=== PATIENT | male | born 1970 | race Caucasian/White ===

== ENCOUNTER → 2021-11-18 09:44 | Outpatient (CLI) | payer OTHER, SELFPAY ==
[2021-11-18 11:29] LABS: COVID19 -Nasal RAPID Negative (Negative)
== END ==
PROVIDERS: PCP Family Medicine; Visit Provider Surgery
DX: Z01.812 Encounter for preprocedural laboratory examination (principal); Z20.822 Contact with and (suspected) exposure to COVID-19
CPT/HCPCS: 87635; C9803

== ENCOUNTER 2021-11-19 11:10 | Day surgery (SDC) | payer OTHER, SELFPAY ==
--- NOTE | 2021-11-19 | PATH_ITS ---
[facility] Accession Number: [id number] . 01 Material submitted: . colon - DESCENDING COLON POLYP . 01 Clinical history: . SCREENING COLONOSCOPY ENCOUNTER FOR SCREENING FOR MALIGNANT NEOPLASM . 01 Diagnosis: Descending Colon, Polyp, Biopsy: Tubular adenoma. MRV 11/21/2021 0932 Local . 01 Electronically signed: . Denise Ramierz MD, Pathologist NPI- [id number] . 01 Gross description: . DESCENDING COLON POLYP: Received in formalin are 2 fragment(s) of cheng, soft tissue measuring 0.4 x 0.2 x 0.2 cm to 0.4 x 0.2 x 0.1 cm submitted entirely in 1 cassette(s) /CPE 11/20/202113 Local . 01 Pathologist provided ICD-10: D12.4 . 01 CPT . 316158 Performed at: 01 [facility] [address] [place] [address], [place], [place] [id number] MD Bautista Tellez MD Phone: [phone]
[2021-11-19 11:45] VITALS: BP 124/95; PULSE 98; RESP 16; TEMP 35.9; O2SAT 97; BMI 25.7
[2021-11-19] MEDS: LACTATED RINGERS 1,000 ML 200 ML IV (11:56)
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
[2021-11-19] MEDS: ONDANSETRON 4 MG/2 ML INJ IV (12:54)
[2021-11-19] MEDS: MIDAZOLAM 5 MG/5 ML VIAL 7 MG IV (12:59)
[2021-11-19] MEDS: fentaNYL 100 MCG/2 ML INJ 150 MCG IV (12:59)
--- NOTE | 2021-11-19 13:22 | PM.OP.COLON ---
Operative Date/Time/Diagnoses Date of procedure: 11/19/21 Time of procedure: 13:22 Pre-op diagnosis: Screening colonoscopy Post-op diagnosis: same Procedure & Clinicians Study performed: Colonoscopy Same procedure as scheduled: Yes Indications: Screening Surgeon: Dre Bennett Procedure Notes Procedure in detail: Medications: Conscious sedation using 7mg IV midazolam and 150mcg IV of fentanyl The history and physical was performed/updated and the patient is ASA class is 2. The procedure was discussed in detail with the patient. Potential risks complications including infection, bleeding, missed diagnosis, perforation, need for surgery, and were explained. Their questions were answered and informed consent was obtained. Patient was brought to the procedure room and placed standard monitoring equipment. The patient's vital signs were monitored continuously throughout the entire procedure. Prior to starting time-out was performed. The patient was placed in the left lateral recumbent position. Procedural sedation was administered. Examination began with a thorough inspection of the perianal area there was no evidence of fissures, fistulae, external hemorrhoids or cutaneous malignancy. The colonoscopy scope was then placed into the anal canal and was advanced to the cecum, which was identified by the ileocecal valve, the appendiceal orifice and the confluence of the taenia. The scope was then slowly withdrawn examining colon thoroughly in all directions, irrigating it of any residual stool. FINDINGS 1. Descending colon-3 mm polyp removed with biopsy forceps 2. Normal colonic end to end anastomosis The patient tolerated the procedure well. They will be discharged once criteria are met. The prep was of good/excellent quality. The withdrawl time was 12minutes. The sedation time was 24 minutes. Specimen(s): other (Descending colonic polyp) Complications: none Impression: Colonic polyp Post-procedure Recommendations: Will call with biopsy results Disposition: same day surgery
[2021-11-19 13:25] VITALS: BP 138/104; PULSE 92; RESP 10; TEMP 36.6; O2SAT 96
[2021-11-19 13:30] VITALS: BP 123/94; PULSE 95; RESP 13; O2SAT 96
[2021-11-19 13:35] VITALS: BP 129/99; PULSE 97; RESP 15; O2SAT 96
[2021-11-19 13:40] VITALS: BP 134/98; PULSE 97; RESP 10; TEMP 37.2; O2SAT 97
--- NOTE | 2021-11-19 13:49 | SUR.PHASEII ---
Report received. PO intake provided. Clothing and artificial lower limb provided.
[2021-11-19 14:05] VITALS: BP 119/90; PULSE 99; TEMP 36.4; O2SAT 100
== END 2021-11-19 14:17 | disposition home or self-care (01) ==
PROVIDERS: PCP Family Medicine; Referring Provider Surgery; Visit Provider Surgery
PROC: 0DJD8ZZ Inspection of Lower Intestinal Tract, Via Natural or Artificial Opening Endoscopic (ICD-10-PCS; CPT 45378; principal; 2021-11-19 13:30)
DX: Z12.11 Encounter for screening for malignant neoplasm of colon (principal); D12.4 Benign neoplasm of descending colon
CPT/HCPCS: 45380; 99152; 99153; J2250; J2405; J3010

== ENCOUNTER → 2023-02-25 11:09 | Outpatient (CLI) | payer OTHER, SELFPAY ==
--- NOTE | 2023-02-25 | DI.US.S_ITS ---
PROCEDURE: US AORTA LIMITED INDICATIONS: ILIAC AMEIRSUM TECHNIQUE: Real time scanning was performed of the aorta and iliac arteries, with image documentation. COMPARISON: None. FINDINGS: Aorta: Proximal aortic diameter measures 2.0 cm. Mid-aorta measures 1.7 cm. Distal aortic diameter is 2.1 cm. Iliac arteries: Right common iliac artery measures 2.6 cm. Left common iliac artery measures 2.0 cm. IMPRESSION: Mild prominence of the distal abdominal aorta, however this only measures up to 2.1 centimeters which is still within normal limits. Right common iliac artery measures 2.6 centimeters which is mildly enlarged. Recommend 1 year follow-up to assess stability. Dictated by: Tano Chow M.D. on 02/25/2023 at 13:49 Approved by: Tano Chow M.D. on 02/25/2023 at 13:52
== END ==
PROVIDERS: PCP Family Medicine; Referring Provider Internal Medicine Cardiovascular Disease; Visit Provider Internal Medicine Cardiovascular Disease
DX: I72.3 Aneurysm of iliac artery (principal)
CPT/HCPCS: 93979